=== PATIENT | female | born 1980 | race African-American/Black ===

== ENCOUNTER 2022-04-04 00:19 | Emergency (ER) | payer BC, OTHER ==
[2022-04-04 00:41] VITALS: BP 107/74; PULSE 79; RESP 18; TEMP 98.7; BMI 25.7
[2022-04-04] MEDS ORDERED: ONDANSETRON 4 MG/2 ML VIAL IVPUSH ONE (02:46)
[2022-04-04] MEDS ORDERED: ONDANSETRON 4 MG/2 ML VIAL ONE (02:55)
[2022-04-04] MEDS ORDERED: LACTATED RINGERS SOLUTION 1000 ML INFUS.BAG IV ONE (03:02)
[2022-04-04 03:41] LABS: BASO % 0.4 % (0-2.0); EOS % 0.8 % (0-4.5); HEMATOCRIT 42.4 % (32.4-45.2); MCH 28.9 pg (25.7-33.7); MCHC 32.9 g/dl (32.0-36.0); MEAN CELL VOLUME 87.8 fl (80-96); MEAN PLT VOLUME 9.7 fl (7.5-11.1); MONO % 6.1 % (3.8-10.2); NEUT % 78.7 % (42.8-82.8); PLATELET COUNT 230 10^3/uL (134-434); RBC 4.83 M/mm3 (3.60-5.2); RDW 13.4 % (11.6-15.6); WHITE BLOOD COUNT 10.9 K/mm3 (4.0-10.0)
[2022-04-04 03:42] LABS: PH,URINE 8.5 (5.0-8.0); URINE APPEARANCE CLEAR; URINE BILIRUBIN NEGATIVE (NEGATIVE); URINE COLOR YELLOW; URINE GLUCOSE (UA) NEGATIVE (NEGATIVE); URINE KETONE NEGATIVE (NEGATIVE); URINE LEUK ESTERASE NEGATIVE (NEGATIVE); URINE NITRITE NEGATIVE (NEGATIVE); URINE PROTEIN NEGATIVE (NEGATIVE); URINE UROBILINOGEN 0.2 mg/dL (0.2-1.0)
[2022-04-04 03:45] LABS: HCG,QUALITATIVE URINE Negative
[2022-04-04 04:02] LABS: CALCIUM 9.4 mg/dL (8.5-10.1)
[2022-04-04 04:03] LABS: ALBUMIN 3.8 g/dl (3.4-5.0); BLOOD UREA NITROGEN 19.2 mg/dL (7-18)
[2022-04-04 04:05] LABS: CREATININE 0.9 mg/dL (0.55-1.3)
[2022-04-04 04:07] LABS: BILIRUBIN,TOTAL 0.2 mg/dL (0.2-1); TOT PROT 7.9 g/dl (6.4-8.2)
== END 2022-04-04 05:17 | disposition home or self-care (01) ==
LOC: JER 00:19
PROC: 3E033GC Introduction of Other Therapeutic Substance into Peripheral Vein, Percutaneous Approach (ICD-10-PCS; principal; 2022-04-04)
DX: R10.30 Lower abdominal pain, unspecified (principal); R11.2 Nausea with vomiting, unspecified
CPT/HCPCS: 0241U-QW; 36415; 80053; 81003; 83690; 84484; 84703; 85025; 87086; 93005; 93010; 99284-25